=== PATIENT | male | born 1955 | race Caucasian/White ===

== ENCOUNTER 2017-09-29 03:03 | Observation (INO) | payer BC, OTHER ==
[~2017-09-29] VITALS: Ht 182.9 cm; Wt 108.0 kg
[~2017-09-29 03:03] MED LIST: ALLO100T PO; AMLO10TA2 PO; DILA4TAB10 PO; FENO160T PO; LISI-519 PO; MENSTAB4 PO; METF500T PO; PROS5TAB PO; VIAG25TA PO
[2017-09-29 03:06] VITALS: BP 164/78; PULSE 76; RESP 18; TEMP 97.6; O2SAT 98
[2017-09-29] MEDS ORDERED: ASPI-516 CHEW (03:33)
[2017-09-29] MEDS ORDERED: TRAD5TAB PO (03:33)
[2017-09-29] MEDS ORDERED: PIOG30TA4 PO (03:34)
[2017-09-29] MEDS ORDERED: SODIUM CHLOR 0.9% 1000 ML INJ 1,000 ML IV SCH ×2 (03:44→05:03)
[2017-09-29] MEDS ORDERED: HYDROmorphone HCL PF 2 MG/ML VIAL IVS ONE (03:45)
[2017-09-29] MEDS ORDERED: ONDANSETRON HCL 4 MG/2 ML VIAL IVP ONE (03:45)
[2017-09-29] MEDS ORDERED: SODIUM CHLORIDE 0.9% FLUSH 10 ML FLUSH IV FLUSH PRN ×2 (03:45→05:15)
--- NOTE | 2017-09-29 03:49 | PD ---
HPI Chief Complaint: Flank/Kidney Pain Time Seen by Provider: 03:08 Travel History International Travel<30 days: No Contact w/Intl Traveler<30days: No Traveled to known affect area: No History of Present Illness HPI The patient is a 62-year-old male with a history of gallstones and kidney stones who complains of right flank pain since 2300 tonight. He states he ate fried chicken and setswana fries right before bed and he vomited once and the pain which is a 9/10 in sharp pain began in his right flank. He took a 4 mg Dilaudid which was left over previously but still has pain. PFSH Past Medical History Hx Anticoagulant Therapy: Yes Heart Rhythm Problems: No Cancer: No Cardiovascular Problems: Yes High Cholesterol: No Congestive Heart Failure: No Diabetes: Yes (metformin) Patient Takes Glucophage: Yes Endocrine: Yes Gastrointestinal Disorders: Yes GERD: Yes Genitourinary: Yes Hypertension: Yes Immune Disorder: No Implanted Vascular Access Dvce: No Kidney Stones: Yes Musculoskeletal: Yes (BL BURSITIS SHOULDERS) Neurologic: No Psychiatric: No Reproductive: No Respiratory: No Thyroid Disease: No Tetanus Vaccination: Unknown Influenza Vaccination: No Past Surgical History Abdominal Surgery: No Cardiac Surgery: No Ear Surgery: No Endocrine Surgery: No Eye Surgery: Yes (CATARACT REMOVAL R EYE) Genitourinary Surgery: Yes (KIDNEY STONE) Neurologic Surgery: No Oral Surgery: No Thoracic Surgery: No Other Surgery: Yes Social History Alcohol Use: No Tobacco Use: No Substance Use: No Allergies-Medications (Allergen,Severity, Reaction): Coded Allergies: No Known Allergies (Verified Adverse Reaction, Unknown, 09/29/17) Reported Meds & Prescriptions Reported Meds & Active Scripts Active Dilaudid (Hydromorphone HCl) 4 Mg Tab 4 Mg PO Q8H PRN Reported Pioglitazone (Pioglitazone HCl) 30 Mg Tab 30 Mg PO DAILY Aspirin 81 Mg Chew 81 Mg CHEW DAILY Viagra (Sildenafil Citrate) 25 Mg Tab 25 Mg PO DAILY PRN Proscar (Finasteride) 5 Mg Tab 5 Mg PO DAILY Do not crush. Metformin (Metformin HCl) 500 Mg Tab 500 Mg PO BIDPC With meals Lisinopril 5 Mg Tab 5 Mg PO DAILY Amlodipine (Amlodipine Besylate) 10 Mg Tab 10 Mg PO DAILY Allopurinol 100 Mg Tab 100 Mg PO DAILY Review of Systems Except as stated in HPI: all other systems reviewed are Neg Physical Exam Narrative GENERAL: The patient is alert, oriented 3 in moderate apparent distress with his right flank pain. His vital signs show blood pressure 164/78 but otherwise normal. SKIN: Focused skin assessment warm/dry. HEAD: Atraumatic. Normocephalic. EYES: Pupils equal and round. No scleral icterus. No injection or drainage. ENT: No nasal bleeding or discharge. Mucous membranes pink and moist. NECK: Trachea midline. No JVD. CARDIOVASCULAR: Regular rate and rhythm. No murmur appreciated. RESPIRATORY: No accessory muscle use. Clear to auscultation. Breath sounds equal bilaterally. GASTROINTESTINAL: Abdomen soft, non-tender, nondistended. Hepatic and splenic margins not palpable. Carpio's sign is negative. I cannot reproduce the patient's pain by palpating on the abdomen. MUSCULOSKELETAL: No obvious deformities. No clubbing. No cyanosis. No edema. NEUROLOGICAL: Awake and alert. No obvious cranial nerve deficits. Motor grossly within normal limits. Normal speech. PSYCHIATRIC: Appropriate mood and affect; insight and judgment normal. Data Data Last Documented VS Orders Orders Complete Blood Count With Diff (09/29/17 03:44) Comprehensive Metabolic Panel (09/29/17 03:44) Lipase (09/29/17 03:44) Urinalysis - C+S If Indicated (09/29/17 03:44) Ct Abd/Pel W/O Iv Contrast (09/29/17 03:44) Iv Access Insert/Monitor (09/29/17 03:44) Ecg Monitoring (09/29/17 03:44) Oximetry (09/29/17 03:44) Hydromorphone Pf Inj (Dilaudid Pf Inj) (09/29/17 03:45) Ondansetron Inj (Zofran Inj) (09/29/17 03:45) Sodium Chlor 0.9% 1000 Ml Inj (Ns 1000 M (09/29/17 03:44) Sodium Chloride 0.9% Flush (Ns Flush) (09/29/17 03:45) Ondansetron Inj (Zofran Inj) (09/29/17 05:00) Hydromorphone Pf Inj (Dilaudid Pf Inj) (09/29/17 05:00) Place In Observation (09/29/17 ) Vital Signs (Adult) Q4H (09/29/17 05:03) Activity Oob With Assistance (09/29/17 05:03) Sodium Chlor 0.9% 1000 Ml Inj (Ns 1000 M (09/29/17 05:03) Sodium Chloride 0.9% Flush (Ns Flush) (09/29/17 05:15) Sodium Chloride 0.9% Flush (Ns Flush) (09/29/17 09:00) Acetaminophen (Tylenol) (09/29/17 05:15) Ondansetron Inj (Zofran Inj) (09/29/17 05:15) Heparin Inj (Heparin Inj) (09/29/17 06:00) Naloxone Inj (Narcan Inj) (09/29/17 05:15) Docusate Sodium-Senna (Jackie-Colace) (09/29/17 09:00) Magnesium Hydroxide Liq (Milk Of Magnesi (09/29/17 05:15) Sennosides (Senokot) (09/29/17 05:15) Bisacodyl Supp (Dulcolax Supp) (09/29/17 05:15) Lactulose Liq (Lactulose Liq) (09/29/17 05:15) Hydromorphone Pf Inj (Dilaudid Pf Inj) (09/29/17 05:15) Admit Order (Ed Use Only) (09/29/17 05:13) Labs Laboratory Tests Test 09/29/17 03:49 White Blood Count 13.2 TH/MM3 Red Blood Count 4.65 MIL/MM3 Hemoglobin 14.8 GM/DL Hematocrit 42.5 % Mean Corpuscular Volume 91.3 FL Mean Corpuscular Hemoglobin 31.8 PG Mean Corpuscular Hemoglobin Concent 34.8 % Red Cell Distribution Width 12.9 % Platelet Count 235 TH/MM3 Mean Platelet Volume 7.8 FL Neutrophils (%) (Auto) 86.0 % Lymphocytes (%) (Auto) 8.8 % Monocytes (%) (Auto) 4.3 % Eosinophils (%) (Auto) 0.6 % Basophils (%) (Auto) 0.3 % Neutrophils # (Auto) 11.3 TH/MM3 Lymphocytes # (Auto) 1.2 TH/MM3 Monocytes # (Auto) 0.6 TH/MM3 Eosinophils # (Auto) 0.1 TH/MM3 Basophils # (Auto) 0.0 TH/MM3 CBC Comment DIFF FINAL Differential Comment Urine Color YELLOW Urine Turbidity SLIGHT Urine pH 7.5 Urine Specific [place] 1.019 Urine Protein NEG mg/dL Urine Glucose (UA) 250 mg/dL Urine Ketones TRACE mg/dL Urine Occult Blood NEG Urine Nitrite NEG Urine Bilirubin NEG Urine Leukocyte Esterase NEG Urine Squamous Epithelial Cells 0-5 /hpf Urine Amorphous Sediment MOD Urine Mucus OCC /lpf Microscopic Urinalysis Comment CULT NOT INDICATED Blood Urea Nitrogen 21 MG/DL Creatinine 1.30 MG/DL Random Glucose 186 MG/DL Total Protein 8.1 GM/DL Albumin 4.3 GM/DL Calcium Level 8.8 MG/DL Alkaline Phosphatase 59 U/L Aspartate Amino Transf (AST/SGOT) 19 U/L Alanine Aminotransferase (ALT/SGPT) 32 U/L Total Bilirubin 0.8 MG/DL Sodium Level 139 MEQ/L Potassium Level 4.1 MEQ/L Chloride Level 104 MEQ/L Carbon Dioxide Level 27.0 MEQ/L Anion Gap 8 MEQ/L Estimat Glomerular Filtration Rate 56 ML/MIN Lipase 193 U/L [facility] Medical Decision Making Medical Screen Exam Complete: Yes Emergency Medical Condition: Yes Medical Record Reviewed: Yes Interpretation(s) The CT of the abdomen/pelvis without IV contrast shows cholelithiasis with no wall thickening or inflammatory change. It also shows a single small nonobstructing right renal calculus and mild diverticulosis. The CBC shows a white count of 13,200 with 86% neutrophils but is otherwise unremarkable. The urine shows 250 glucose with trace ketones but is otherwise normal and culture is not indicated. The complete metabolic profile shows a BUN of 21, GFR 56, glucose of 186 but is otherwise normal. The lipase is normal. Differential Diagnosis Cholelithiasis with colic, choledocholithiasis, cholecystitis, urinary infection , urinary stone Narrative Course The patient likely has cholelithiasis with colic. The patient is in considerable discomfort at this time and will likely need IV pain medicines for a short time. I discussed the patient with Dr. Perea, the patient will be admitted to her. At this time the patient has intractable abdominal pain. Physician Communication Physician Communication I discussed the patient with Dr. Perea. Diagnosis Primary Impression: Cholelithiasis Additional Impression: Intractable abdominal pain Admitting Information Admitting Physician Requests: Observation Noah Harris MD Sep 29, 2017 03:49
[2017-09-29 04:09] LABS: AUTOMATED NEUTROPHIL # 11.3 TH/MM3 (1.8-7.7); BASOPHIL % 0.3 % (0.0-2.0); BILIRUBIN, URINE NEG (NEG); BLOOD, URINE NEG (NEG); EOSINOPHIL # 0.1 TH/MM3 (0-0.4); EOSINOPHIL % 0.6 % (0.0-4.0); GLUCOSE,URINE 250 mg/dL (NEG); HEMATOCRIT 42.5 % (39.0-51.0); HEMOGLOBIN 14.8 GM/DL (13.0-17.0); KETONE, URINE TRACE mg/dL (NEG); LYMPH % 8.8 % (9.0-44.0); LYMPHOCYTE # 1.2 TH/MM3 (1.0-4.8); MEAN CELL VOLUME 91.3 FL (80.0-100.0); MEAN CORPUSCULAR HEMOGLOBIN 31.8 PG (27.0-34.0); MEAN CORPUSCULAR HGB CONC 34.8 % (32.0-36.0); MEAN PLATELET VOLUME 7.8 FL (7.0-11.0); MONO % 4.3 % (0.0-8.0); MONOCYTE # 0.6 TH/MM3 (0-0.9); NITRITE,URINE NEG (NEG); PH, URINE 7.5 (5.0-8.5); PLATELET COUNT 235 TH/MM3 (150-450); RED BLOOD COUNT 4.65 MIL/MM3 (4.50-5.90); RED CELL DISTRIBUTION WIDTH 12.9 % (11.6-17.2); URINE LEUKOCYTE ESTERASE NEG (NEG); WHITE BLOOD COUNT 13.2 TH/MM3 (4.0-11.0)
[2017-09-29 04:18] LABS: CHLORIDE 104 MEQ/L (98-107); SODIUM (NA) 139 MEQ/L (136-145)
[2017-09-29 04:21] LABS: CALCIUM 8.8 MG/DL (8.5-10.1)
[2017-09-29 04:22] LABS: ALBUMIN 4.3 GM/DL (3.4-5.0); BLOOD UREA NITROGEN 21 MG/DL (7-18); GLUCOSE,RANDOM 186 MG/DL (74-106)
[2017-09-29 04:24] LABS: URINE COLOR YELLOW (YELLW/STRAW)
[2017-09-29 04:25] LABS: ALT (GPT) 32 U/L (12-78); AMORPHOUS SEDIMENT, URINE MOD; AST (GOT) 19 U/L (15-37); GLOMERULAR FILTRATION RATE 56 ML/MIN (>89); MUCUS URINE OCC /lpf (OCC)
[2017-09-29 04:26] LABS: SQUAMOUS EPITHELIAL CELL URINE 0-5 /hpf (0-5); TOTAL BILIRUBIN ADULT 0.8 MG/DL (0.2-1.0); TOTAL PROTEIN 8.1 GM/DL (6.4-8.2)
[2017-09-29 04:28] LABS: ALKALINE PHOSPHATASE 59 U/L (45-117)
--- NOTE | 2017-09-29 04:33 | RADRPT ---
EXAM DATE/TIME: 09/29/2017 04:01 [place] COMPARISON: CT ABDOMEN & PELVIS W/O CONTRAST, August 03, 2016, 1:36. INDICATIONS : Right flank pain. ORAL CONTRAST: No oral contrast ingested. RADIATION DOSE: 15.36 CTDIvol (mGy) MEDICAL HISTORY : Gastroesophageal reflux disease. Diabetes mellitus type 2. Cardiovascular disease SURGICAL HISTORY : None. ENCOUNTER: Initial ACUITY: 1 day PAIN SCALE: 8/10 LOCATION: Right flank TECHNIQUE: Volumetric scanning of the abdomen and pelvis was performed. Using automated exposure control and ad justment of the mA and/or kV according to patient size, radiation dose was kept as low as reasonably achievable to obtain optimal diagnostic quality images. DICOM format image data is available electro nically for review and comparison. FINDINGS: LOWER LUNGS: The visualized lower lungs are clear. LIVER: Homogeneous density without lesion. There is no dilation of the biliary tree. Multiple small calcifi ed gallstones are again noted layering dependently with no definite wall thickening or pericholecysti c fluid. SPLEEN: Normal size without lesion. PANCREAS: Within normal limits. KIDNEYS: Normal in size and shape. There is no mass or hydronephrosis. A single small calculus is noted in th e right lower pole measuring up to millimeters. ADRENAL GLANDS: Within normal limits. VASCULAR: There is no aortic aneurysm. BOWEL/MESENTERY: The stomach, small bowel, and colon demonstrate no acute abnormality. Multiple diverticuli are again noted There is no free intraperitoneal air or fluid. ABDOMINAL WALL: Within normal limits. RETROPERITONEUM: There is no lymphadenopathy. BLADDER: No wall thickening or mass. REPRODUCTIVE: Within normal limits. INGUINAL: There is no lymphadenopathy or hernia. MUSCULOSKELETAL: Within normal limits for patient age. CONCLUSION: 1. Cholelithiasis with no wall thickening or inflammatory change. 2. Single small non-obstructing right renal calculus now noted. 3. Mild diverticulosis. Bereket Lyman MD on September 29, 2017 at 4:26 Board Certified Radiologist. This report was verified electronically.
[2017-09-29] MEDS ORDERED: ONDANSETRON HCL 4 MG/2 ML VIAL IV ONE (05:00)
[2017-09-29] MEDS ORDERED: HYDROmorphone HCL PF 2 MG/ML VIAL IV PUSH ONE (05:00)
[2017-09-29] MEDS ORDERED: NALOXONE HCL 0.4 MG/ML AMP IV PUSH PRN (05:15)
[2017-09-29] MEDS ORDERED: BISACODYL 10 MG SUPP RECTAL PRN (05:15)
[2017-09-29] MEDS ORDERED: LACTULOSE SYRUP 20 GM/30 ML CUP PO PRN (05:15)
[2017-09-29] MEDS ORDERED: MAGNESIUM HYDROXIDE SUSP 30 ML CUP PO PRN (05:15)
[2017-09-29] MEDS ORDERED: ONDANSETRON HCL 4 MG/2 ML VIAL IVP PRN (05:15)
[2017-09-29] MEDS ORDERED: ACETAMINOPHEN 325 MG TAB PO PRN (05:15)
[2017-09-29] MEDS ORDERED: SENNOSIDES 8.6 MG TAB PO PRN (05:15)
[2017-09-29] MEDS ORDERED: HYDROmorphone HCL PF 1 MG/ML VIAL IV PUSH PRN (05:15)
[2017-09-29 05:52] VITALS: O2SAT 93
[2017-09-29 05:53] VITALS: BP 153/80; PULSE 80; RESP 16; O2SAT 93
[2017-09-29] MEDS: HEPARIN SODIUM - SQ 10,000 UNITS/ML VIAL SQ SCH ×2 (06:23→14:41)
[2017-09-29 07:16] VITALS: BP 153/82; PULSE 86; RESP 16; TEMP 98.5; O2SAT 94
[2017-09-29 08:00] VITALS: BP 160/85; PULSE 85; RESP 18; TEMP 96.5; O2SAT 93
[2017-09-29] MEDS ORDERED: SODIUM CHLORIDE 0.9% FLUSH 10 ML FLUSH IV FLUSH SCH (09:00)
[2017-09-29] MEDS ORDERED: DOCUSATE SODIUM 50 MG/SENNA 8.6 MG TAB PO SCH (09:00)
[2017-09-29] MEDS ORDERED: HYDROmorphone HCL PF 2 MG/ML VIAL IV PUSH PRN (11:00)
[2017-09-29 12:00] VITALS: BP 135/77; PULSE 96; RESP 18; TEMP 98.5; O2SAT 93
--- NOTE | 2017-09-29 12:24 | HHI.HP ---
[facility] Service [facility] Primary Care Physician Jackson Schumacher Admission Diagnosis intractable abdominal pain Diagnoses: Travel History International Travel<30 Days: No Contact w/Intl Traveler <30 Da: No Traveled to Known Affected Are: No History of Present Illness hx from patient and ER notes and review of med records last night , had grandkids over and had chicken tenders etc had hx of gerd pain was at right UQ radiates to right flank nausea, vomiting x 2 but large amount - no blood in it no diarrhea no fever this is first time he finds out about gallstones hx of kidney stones before - lithotripsy x 7 have had stents but none now has been having gerd symptoms when he eats something spicy or tomatoe sauce- for about 6 months Review of Systems Except as stated in HPI: all other systems reviewed are Neg Past Family Social History Past Medical History htn dm kidney stones Past Surgical History lithotripsies hemorrhoidectomy right radius sx right metacarpal sx of hand Allergies: Coded Allergies: No Known Allergies (Verified Adverse Reaction, Unknown, 09/29/17) Family History father with PR at 58 yo, had cabg at 62 mother side of family- cancer hx - lady cancers Social History no smoking, no etoh or drug abuse quit may 11, 2016 smoking Physical Exam Vital Signs Vital Signs Date Time Temp Pulse Resp B/P (MAP) Pulse Ox O2 Delivery O2 Flow Rate FiO2 09/29/17 08:00 96.5 85 18 160/85 (110) 93 09/29/17 07:43 09/29/17 07:16 98.5 86 16 153/82 (105) 94 Room Air 09/29/17 05:53 80 16 153/80 (104) 93 Room Air 09/29/17 05:52 93 Room Air 09/29/17 03:06 97.6 76 18 164/78 (106) 98 Physical Exam GENERAL: This is a well-nourished, well-developed patient, in no apparent distress. SKIN: No rashes, ecchymoses or lesions. Cool and dry. HEAD: Atraumatic. Normocephalic. No temporal or scalp tenderness. EYES: No scleral icterus. No injection or drainage. ENT: Nose without bleeding, purulent drainage or septal hematoma. Airway patent. NECK: Trachea midline. No JVD . Supple, nontender, no meningeal signs. CARDIOVASCULAR: Regular rate and rhythm without murmurs, gallops, or rubs. RESPIRATORY: Clear to auscultation. Breath sounds equal bilaterally. No wheezes , rales, or rhonchi. GASTROINTESTINAL: Abdomen soft, non-tender, nondistended.. No guarding. MUSCULOSKELETAL: Extremities without clubbing, cyanosis, or edema. . No calf tenderness. NEUROLOGICAL: Awake and alert. Motor and sensory grossly within normal limits Normal speech. Laboratory Laboratory Tests Test 09/29/17 03:49 White Blood Count 13.2 Red Blood Count 4.65 Hemoglobin 14.8 Hematocrit 42.5 Mean Corpuscular Volume 91.3 Mean Corpuscular Hemoglobin 31.8 Mean Corpuscular Hemoglobin Concent 34.8 Red Cell Distribution Width 12.9 Platelet Count 235 Mean Platelet Volume 7.8 Neutrophils (%) (Auto) 86.0 Lymphocytes (%) (Auto) 8.8 Monocytes (%) (Auto) 4.3 Eosinophils (%) (Auto) 0.6 Basophils (%) (Auto) 0.3 Neutrophils # (Auto) 11.3 Lymphocytes # (Auto) 1.2 Monocytes # (Auto) 0.6 Eosinophils # (Auto) 0.1 Basophils # (Auto) 0.0 CBC Comment DIFF FINAL Differential Comment Urine Color YELLOW Urine Turbidity SLIGHT Urine pH 7.5 Urine Specific [place] 1.019 Urine Protein NEG Urine Glucose (UA) 250 Urine Ketones TRACE Urine Occult Blood NEG Urine Nitrite NEG Urine Bilirubin NEG Urine Leukocyte Esterase NEG Urine Squamous Epithelial Cells 0-5 Urine Amorphous Sediment MOD Urine Mucus OCC Microscopic Urinalysis Comment CULT NOT INDICATED Blood Urea Nitrogen 21 Creatinine 1.30 Random Glucose 186 Total Protein 8.1 Albumin 4.3 Calcium Level 8.8 Alkaline Phosphatase 59 Aspartate Amino Transf (AST/SGOT) 19 Alanine Aminotransferase (ALT/SGPT) 32 Total Bilirubin 0.8 Sodium Level 139 Potassium Level 4.1 Chloride Level 104 Carbon Dioxide Level 27.0 Anion Gap 8 Estimat Glomerular Filtration Rate 56 Lipase 193 Result Diagram: 09/29/1734809/29/17348 Imaging Last 48 hours Impressions Abdomen/Pelvis CT 09/29/17343 Signed Impressions: Service Date/Time: Friday, September 29, 2017 04:01 - CONCLUSION: 1. Cholelithiasis with no wall thickening or inflammatory change. 2. Single small non-obstructing right renal calculus now noted. 3. Mild diverticulosis. MD Michaela Solano VTE Risk Assessment Michaela VTE Risk Assessment: No/Low Risk (score <= 1) Caprini Risk Assessment Model Point Value = 1 Point Value = 2 Point Value = 3 Point Value = 5 Age 41-60 Minor surgery BMI > 25 kg/m2 Swollen legs Varicose veins or History of unexplained or recurrent spontaneous Oral contraceptives or hormone replacement Sepsis (< 1 month) Serious lung disease, including pneumonia (< 1 month) Abnormal pulmonary function Acute myocardial infarction Congestive heart failure (< 1 month) History of inflammatory bowel disease Medical patient at bed rest Age 61-74 Arthroscopic surgery Major open surgery (> 45 min) Laparoscopic surgery (> 45 min) Malignancy Confined to bed (> 72 hours) Immobilizing plaster cast Central venous access Age >= 75 History of VTE Family history of VTE Factor V Leiden Prothrombin [id number] Lupus anticoagulant Anticardiolipin antibodies Elevated serum homocysteine Heparin-induced thrombocytopenia Other congenital or acquired thrombophilia Stroke (< 1 month) Elective arthroplasty Hip, pelvis, or leg fracture Acute spinal cord injury (< 1 month) Prophylaxis Regimen Total Risk Factor Score Risk Level Prophylaxis Regimen 0-1 Low Early ambulation 2 Moderate Order ONE of the following: *Sequential Compression Device (SCD) *Heparin 5000 units SQ BID 3-4 Higher Order ONE of the following medications: *Heparin 5000 units SQ TID *Enoxaparin/Lovenox 40 mg SQ daily (WT < 150 kg, CrCl > 30 mL/min) *Enoxaparin/Lovenox 30 mg SQ daily (WT < 150 kg, CrCl > 10-29 mL/min) *Enoxaparin/Lovenox 30 mg SQ BID (WT < 150 kg, CrCl > 30 mL/min) AND/OR *Sequential Compression Device (SCD) 5 or more Highest Order ONE of the following medications: *Heparin 5000 units SQ TID (Preferred with Epidurals) *Enoxaparin/Lovenox 40 mg SQ daily (WT < 150 kg, CrCl > 30 mL/min) *Enoxaparin/Lovenox 30 mg SQ daily (WT < 150 kg, CrCl > 10-29 mL/min) *Enoxaparin/Lovenox 30 mg SQ BID (WT < 150 kg, CrCl > 30 mL/min) AND *Sequential Compression Device (SCD) Assessment and Plan Assessment and Plan Impression: symptomatic cholelithiasis htn dm hx of renal stones Plan: pain control start diet if no pain/ no nausea or vomiting after food, will likely dc pt this pm for now hold po diabetic meds till we are sure he can tolerate food fingersticks and sliding scale pt has dilaudid po at home- can take this upon dc explained to pt re ct findings not having any cholecystitis - but if he has fever, or worsening pain, to go to pcp or er for possible need of antibiotics dvt prophlaxis with ambulation Discussed Condition With patient, nursing staff Denilson Perea MD Sep 29, 2017 12:24
[2017-09-29] MEDS ORDERED: DEXTROSE 50% IN WATER 50 ML VIAL(D50) IV PUSH PRN (12:45)
[2017-09-29] MEDS ORDERED: GLUCAGON 1 MG/ML VIAL OTHER PRN (12:45)
--- NOTE | 2017-09-29 15:06 | HHI.DCPOC ---
Discharge Care Plan Diagnosis: (1) Cholelithiasis (2) Intractable abdominal pain Goals to Promote Your Health * To prevent worsening of your condition and complications * To maintain your health at the optimal level Directions to Meet Your Goals Take your medications as prescribed Follow your dietary instruction Follow activity as directed Keep your appointments as scheduled Take your immunizations and boosters as scheduled If your symptoms worsen call your PCP, if no PCP go to Urgent Care Center or Emergency Room Smoking is Dangerous to Your Health. Avoid second hand smoke Call the 24-hour hour crisis hotline for domestic abuse at hydrate yourself take pain meds only if needed (pt has dilaudid po prn at home) watch out for fever, unresolved pain, lethargy if symptoms persist, go to PCP or ER for evaluation of possible developing inflammation/ swelling of gallbladder that might require antibiotics treatment and surgery (cholecystitis) for gerd, please make appointment with GI for Endoscopy to document ulcers/ healing status- take priolosec over the counter for symptoms- diet to watch out. resume rest of home meds. Denilson Perea MD Sep 29, 2017 15:06
[2017-09-29] MEDS ORDERED: INSULIN ASPART SUPPLEMENTAL SCALE SQ SCH (17:00)
[2017-09-30] MEDS ORDERED: ATORVASTATIN 20 MG TAB PO SCH (09:00)
== END 2017-09-29 16:20 | disposition home or self-care (01) ==
LOC: PHED 03:03 → PHEDA 05:15 → PH3B 07:36
PROVIDERS: ADMIT Internal Medicine; ATTEND Internal Medicine
DX: K80.20 Calculus of gallbladder without cholecystitis without obstruction (principal); K57.90 Diverticulosis of intestine, part unspecified, without perforation or abscess without bleeding; N20.0 Calculus of kidney; K21.9 Gastro-esophageal reflux disease without esophagitis; I10 Essential (primary) hypertension; E11.9 Type 2 diabetes mellitus without complications
CPT/HCPCS: 74176; 80053; 81001; 82948; 83690; 85025; 96361; 96372; 96374; 96375; 96376; 99285; G0378; J1170; J1644; J2405; J7030